=== PATIENT | male | born 2000 | race African-American/Black ===

== ENCOUNTER 2018-05-05 20:47 | Emergency (ER) | payer MEDICAID ==
[~2018-05-05] VITALS: Ht 172.7 cm; Wt 68.0 kg
[~2018-05-05 20:47] MED LIST: IBUPROFEN600 MG ORAL; NKM
[2018-05-05 21:06] VITALS: BP 147/94
[2018-05-05] MEDS ORDERED: PREDNISONE20 MG ORAL (21:28)
[2018-05-05] MEDS ORDERED: AMOXICILLIN500 MG ORAL (21:28)
--- NOTE | 2018-05-05 21:29 | Emergency Room Report ---
History of Present Illness General Chief Complaint: Asthma Source: Patient Present Illness HPI Is a 18-year-old male with no past medical history except asthma. He presents with some facial pain and swelling. He said around 11 AM this morning he has an asthma attack. He uses inhaler and later on today he felt some tingling and swelling to his upper lip and left facial pain with her pain. Denies any nausea vomiting. Denies any fever chills. Nothing made it better. Nothing made it worse. Not itching. No rash or complaint. Allergies: Coded Allergies: No Known Allergies (Unverified , 07/27/13) Patient History Past Medical History: see triage record, old chart reviewed, asthma Past Surgical History: none Pertinent Family History: none Social History: Denies: smoking Immunizations: other Reviewed Nursing Documentation: PMH: Agreed; PSxH: Agreed Nursing Documentation-PMH Hx Asthma: Yes Review of Systems Eye: Denies: eye pain, blurred vision ENT: Denies: ear pain, nose congestion, throat swelling Respiratory: Denies: cough, shortness of breath Cardiovascular: Denies: chest pain, palpitations Gastrointestinal: Denies: abdominal pain, diarrhea, nausea, vomiting Musculoskeletal: Denies: back pain, joint pain Skin: Denies: rash Neurological: Denies: headache, numbness Endocrine: Denies: increased thirst, increased urine Hematologic/Lymphatic: Denies: easy bruising All Other Systems: negative except mentioned in HPI Physical Exam Vital Signs Date Time Temp Pulse Resp B/P (MAP) Pulse Ox O2 Delivery O2 Flow Rate FiO2 05/05/18 20:50 97.3 73 18 130/86 97 Room Air 97.3 Sp02 EP Interpretation: reviewed, normal General Appearance: well appearing, no apparent distress, alert Head: normocephalic, atraumatic Eyes: bilateral eye PERRL, bilateral eye EOMI ENT: hearing grossly normal, normal pharynx, other - poor dentition. Neck: full range of motion, supple, no meningismus Respiratory: chest non-tender, lungs clear, normal breath sounds Cardiovascular #1: regular rate, rhythm, no murmur Gastrointestinal: normal bowel sounds, non tender, no mass, no organomegaly, no bruit, non-distended Musculoskeletal: back normal, gait/station normal, normal range of motion Psychiatric: mood/affect normal Skin: warm/dry Medical Decision Making Diagnostic Impression: Primary Impression: Lip edema Additional Impressions: Asthma Qualified Codes: J45.909 - Unspecified asthma, uncomplicated Gingivitis due to dental plaque ER Course Patient with asthma exacerbation. He is clear now. His lymphedema is minimal. This may be secondary to dental infection since he has very poor dentition with plaque and gingivitis. We'll discharge home with antibiotics and prednisone. Last Vital Signs Date Time Temp Pulse Resp B/P (MAP) Pulse Ox O2 Delivery O2 Flow Rate FiO2 05/05/18 21:06 97.0 74 13 147/94 100 Room Air 97.0 Status: unchanged Disposition: HOME, SELF-CARE Condition: Stable Scripts Prednisone* (PREDNISONE*) 20 Mg Tablet 40 MG ORAL DAILY, #10 TAB Prov: CINDY PHELPS M.D. 05/05/18 Amoxicillin* (AMOXIL*) 500 Mg Capsule 500 MG ORAL THREE TIMES A DAY, #21 CAP Prov: CINDY PHELPS M.D. 05/05/18 Additional Instructions: Follow-up with your doctor in 7 days. Return if symptom worsen. CINDY PHELPS M.D. May 05, 2018 21:29
[2018-05-05 21:37] VITALS: BP 123/65
== END 2018-05-05 21:37 | disposition home or self-care (01) ==
LOC: EMR 21:31
DX: J45.909 Unspecified asthma, uncomplicated (principal); R60.0 Localized edema; K05.10 Chronic gingivitis, plaque induced
CPT/HCPCS: 99284

== ENCOUNTER 2018-09-15 22:11 | Emergency (ER) | payer MEDICAID ==
[~2018-09-15] VITALS: Ht 170.2 cm; Wt 71.7 kg
[~2018-09-15 22:11] MED LIST changes: +AMOXICILLIN500 MG ORAL; +PREDNISONE20 MG ORAL
[2018-09-15 22:31] VITALS: BP 140/86
[2018-09-15] MEDS ORDERED: IBUPROFEN600 MG ORAL (22:32)
--- NOTE | 2018-09-15 22:33 | Emergency Room Report ---
History of Present Illness General Chief Complaint: Pain Source: Patient Present Illness HPI This is a 18-year-old male with no past medical history. He presents with chief complaint of locked jaw. We'll cut said he can open his mouth very well. He has tenderness of the jaw area. It wasn't dislocated. Never had this problem before. Better now. Denies any other complaint. Allergies: Coded Allergies: No Known Allergies (Unverified , 07/27/13) Patient History Past Medical History: see triage record, old chart reviewed Past Surgical History: none Pertinent Family History: none Social History: Denies: smoking Immunizations: other Reviewed Nursing Documentation: PMH: Agreed; PSxH: Agreed Nursing Documentation-PMH Past Medical History: No Stated History Hx Asthma: Yes Review of Systems Eye: Denies: eye pain, blurred vision ENT: Denies: ear pain, nose congestion, throat swelling Respiratory: Denies: cough, shortness of breath Cardiovascular: Denies: chest pain, palpitations Gastrointestinal: Denies: abdominal pain, diarrhea, nausea, vomiting Musculoskeletal: Denies: back pain, joint pain Skin: Denies: rash Neurological: Denies: headache, numbness Endocrine: Denies: increased thirst, increased urine Hematologic/Lymphatic: Denies: easy bruising All Other Systems: negative except mentioned in HPI Physical Exam Vital Signs Date Time Temp Pulse Resp B/P (MAP) Pulse Ox O2 Delivery O2 Flow Rate FiO2 09/15/18 22:15 98.2 86 16 140/86 100 Room Air vitals normal Sp02 EP Interpretation: reviewed, normal General Appearance: well appearing, no apparent distress, alert Head: normocephalic, atraumatic Eyes: bilateral eye PERRL, bilateral eye EOMI ENT: hearing grossly normal, normal pharynx, other - This clicking of his TMJs bilaterally Neck: full range of motion, supple, no meningismus Respiratory: chest non-tender, lungs clear, normal breath sounds Cardiovascular #1: regular rate, rhythm, no murmur Gastrointestinal: normal bowel sounds, non tender, no mass, no organomegaly, no bruit, non-distended Musculoskeletal: back normal, gait/station normal, normal range of motion Psychiatric: mood/affect normal Skin: warm/dry Medical Decision Making Diagnostic Impression: Primary Impression: TMJ (temporomandibular joint syndrome) ER Course Patient with TMJ syndrome. Better now. We'll discharge home. Notice any dislocation. Last Vital Signs Date Time Temp Pulse Resp B/P (MAP) Pulse Ox O2 Delivery O2 Flow Rate FiO2 09/15/18 22:15 98.2 86 16 140/86 100 Room Air Status: improved Disposition: HOME, SELF-CARE Condition: Stable Scripts Ibuprofen* (MOTRIN*) 600 Mg Tablet 600 MG ORAL THREE TIMES A DAY, #30 TAB 0 Refills Prov: Joaquim Canas MD 09/15/18 Additional Instructions: Soft food for now. No chewing gum. If continue to be problematic, may need mouthguard at night. Follow-up with your doctor in 7 days. Return if worse. Joaquim Canas MD Sep 15, 2018 22:33
[2018-09-15 22:41] VITALS: BP 136/86
== END 2018-09-15 22:40 | disposition home or self-care (01) ==
LOC: EMR 22:31
DX: M26.603 Bilateral temporomandibular joint disorder, unspecified (principal); J45.909 Unspecified asthma, uncomplicated
CPT/HCPCS: 99282

== ENCOUNTER 2019-08-11 16:13 | Emergency (ER) | payer MEDICAID, OTHER ==
[~2019-08-11] VITALS: Ht 172.7 cm; Wt 72.6 kg
[2019-08-11 16:23] VITALS: BP 133/92
[2019-08-11] MEDS ORDERED: ALBUTEROL SULF8.5 GM INH (16:30)
[2019-08-11] MEDS ORDERED: PREDNISONE20 MG ORAL (16:30)
--- NOTE | 2019-08-11 16:33 | NUR ---
ED Nurse Note: PT FROM HOME WALKED IN DUE TO ASTHMA ATTACK AROUND 0800AM THIS MORNING. PT TOOK ALBUTEROL BUT STATES IT JUST HELPED HIM A LITTLE BIT. NO AUDIBLE WHEEZING AT THIS TIME. AAO X4, AMBULATORY WITH NON LABORED BREATHING.
[2019-08-11 16:39] VITALS: BP 133/92
--- NOTE | 2019-08-11 16:39 | NUR ---
ER DISCHARGE NOTE: Patient is cleared to be discharged per ERMD, pt is aox4, on room air, with stable vital signs. pt was given dc and prescription instructions, pt was able to verbalize understanding, pt id band removed without complications. pt is able to ambulate with steady gait. pt took all belongings.
--- NOTE | 2019-08-11 17:05 | Emergency Room Report ---
History of Present Illness General Chief Complaint: Asthma Source: Patient Present Illness HPI 19-year-old male presents ED for evaluation. States this morning he felt short of breath. History of asthma. States that warm weather triggers his asthma. States he uses inhaler and feels better. Is here for refill of his inhaler. Denies any cough or shortness of breath at this time. Denies any chest pain. No other aggravating relieving factors. Denies any other associated symptoms Allergies: Coded Allergies: No Known Allergies (Unverified , 07/27/13) Patient History Past Medical History: asthma Past Surgical History: none Pertinent Family History: none Social History: Denies: smoking, alcohol use, drug use Immunizations: UTD Reviewed Nursing Documentation: PMH: Agreed; PSxH: Agreed Nursing Documentation-PMH Past Medical History: No History, Except For Hx Asthma: Yes Review of Systems All Other Systems: negative except mentioned in HPI Physical Exam Vital Signs Date Time Temp Pulse Resp B/P (MAP) Pulse Ox O2 Delivery O2 Flow Rate FiO2 08/11/19 16:23 98.1 73 18 133/92 100 Room Air Sp02 EP Interpretation: reviewed, normal General Appearance: no apparent distress, alert, GCS 15, non-toxic Head: normocephalic, atraumatic Eyes: bilateral eye normal inspection, bilateral eye PERRL ENT: hearing grossly normal, normal pharynx, no angioedema, normal voice Neck: full range of motion, supple/symm/no masses Respiratory: chest non-tender, lungs clear, normal breath sounds, speaking full sentences Cardiovascular #1: regular rate, rhythm, no edema Cardiovascular #2: 2+ carotid (R), 2+ carotid (L), 2+ radial (R), 2+ radial (L) , 2+ dorsalis pedis (R), 2+ dorsalis pedis (L) Gastrointestinal: normal bowel sounds, non tender, soft, non-distended, no guarding, no rebound Rectal: deferred Genitourinary: normal inspection, no CVA tenderness Musculoskeletal: back normal, gait/station normal, normal range of motion, non- tender Neurologic: alert, oriented x3, responsive, motor strength/tone normal, sensory intact, speech normal Psychiatric: judgement/insight normal, memory normal, mood/affect normal, no suicidal/homicidal ideation Reflexes: 3+ bicep (R), 3+ bicep (L), 3+ tricep (R), 3+ tricep (L), 3+ knee (R) , 3+ knee (L) Lymphatic: no adenopathy Medical Decision Making Diagnostic Impression: Primary Impression: Asthma attack Qualified Codes: J45.21 - Mild intermittent asthma with (acute) exacerbation ER Course Hospital Course 19 yo M presents with SOB. h/o asthma Differential diagnoses include: URI, bronchitis, asthma/COPD, pneumonia Clinical course Patient placed on stretcher. After initial history, physical exam reveals a male in no acute distress. Bilateral TM unremarkable. No pharyngeal erythema. No tonsillar exudates. No lymphadenopathy. no wheezing noted on exam, no signs of respiratory distress or retractions. Vitals stable. Discussed findings with patient. Offered option for breathing treatment but patient declined. Is just requesting refill of his albuterol. I will also prescribe prednisone. Does not have a PMD. I will provide referrals Diagnosis - asthma exacerbation Stable and discharged home with prescriptions for albuterol, prednisone. Instructed to followup with PMD. Return to ED if symptoms recur or worsen Last Vital Signs Date Time Temp Pulse Resp B/P (MAP) Pulse Ox O2 Delivery O2 Flow Rate FiO2 08/11/19 16:39 98.1 73 16 133/92 100 Room Air Status: improved Disposition: HOME, SELF-CARE Condition: Stable Scripts Prednisone* (PREDNISONE*) 20 Mg Tablet 40 MG ORAL DAILY, #10 TAB Prov: Corby Burnett MD 08/11/19 Albuterol Sulfate* (ALBUTEROL SULFATE MDI*) 8.5 Gm Hfa.aer.ad 2 PUFF INH Q6H, #1 EA 0 Refills Prov: Corby Burnett MD 08/11/19 Referrals: [facility] Patient Instructions: Asthma, Adult Corby Burnett MD Aug 11, 2019 17:05
== END 2019-08-11 17:00 | disposition home or self-care (01) ==
LOC: EMR 16:58
DX: J45.21 Mild intermittent asthma with (acute) exacerbation (principal); Z79.51 Long term (current) use of inhaled steroids
CPT/HCPCS: 99282

== ENCOUNTER 2020-11-05 02:13 | Emergency (ER) | payer MEDICAID, OTHER ==
[~2020-11-05] VITALS: Ht 172.7 cm; Wt 74.8 kg
[~2020-11-05 02:13] MED LIST changes: +ALBUTEROL SULF8.5 GM INH
--- NOTE | 2020-11-05 02:29 | NUR ---
ED Nurse Note: Pt walked into the ed due to sore throat and gum swelling since last night. pt denied sob, cough, and pain at the moment. pt vitals are stable.
[2020-11-05 02:32] VITALS: BP 148/86
--- NOTE | 2020-11-05 02:48 | Emergency Room Report ---
History of Present Illness General Chief Complaint: Sore Throat Source: Patient, Medical Record Present Illness HPI The patient presents with swelling of his gums. This began yesterday. He has had this problem in the past. He has had gum infections in the past. In addition he has a sore throat. He is having difficulty swallowing but is able to keep down liquids and also solid food. He reports the pain in his gum and throat as 6/10. Somewhat sharp and burning. It is not radiating. Patient denies any difficulty breathing. There is no fever or chills although he felt warm tonight. Patient has no cough. History of asthma. Although the patient is recently travel to [place] he is adamant that he has not been in contact with any Covid positive sources. No chest pain, palpitations, nausea, vomiting, diarrhea, dysuria, abdominal pain, shortness of breath, joint pain, rashes, dizziness, headache. Allergies: Coded Allergies: No Known Allergies (Unverified , 07/27/13) COVID-19 Screening Contact w/high risk pt: No Experienced COVID-19 symptoms?: Yes COVID-19 Testing performed MANAGER PLUMBING: No Patient History Past Medical History: see triage record Social History: Denies: smoking, alcohol use Social History Narrative Unemployed, with girlfriend Reviewed Nursing Documentation: PMH: Agreed; PSxH: Agreed Nursing Documentation-PMH Past Medical History: No History, Except For Hx Asthma: Yes Review of Systems All Other Systems: negative except mentioned in HPI Physical Exam Vital Signs Date Time Temp Pulse Resp B/P (MAP) Pulse Ox O2 Delivery O2 Flow Rate FiO2 11/05/20 02:17 98.1 105 20 148/86 (106) 99 Room Air Sp02 EP Interpretation: reviewed, normal General Appearance: well appearing, no apparent distress, GCS 15 Head: normocephalic Eyes: bilateral eye normal inspection, bilateral eye PERRL, bilateral eye EOMI ENT: moist mucus membranes, other - Gum swollen bilaterally mainly upper without erythema. Pharynx has erythema diffusely without angioedema. Neck: full range of motion, supple, other - No stridor Respiratory: chest non-tender, lungs clear, normal breath sounds Cardiovascular #1: regular rate, rhythm Cardiovascular #2: 2+ radial (R) Gastrointestinal: normal inspection, scaphoid Musculoskeletal: gait/station normal Neurologic: alert, grossly normal Psychiatric: mood/affect normal Skin: no rash Medical Decision Making Diagnostic Impression: Primary Impression: Gingivitis Additional Impression: Pharyngitis Qualified Codes: J02.9 - Acute pharyngitis, unspecified ER Course Patient presents with swollen and painful gums and painful throat of 2 days dur ation. Differential includes gingivitis, pharyngitis, dental abscesses amongst others. Patient does not appear toxic nor dehydrated. Patient has been isolating himself with his girlfriend and does not believe he has COVID-19 at this time. Based on exam and oxygen saturation clinically significant COVID-19 is less likely. Most likely the patient has pharyngitis and gingivitis. Indication for antibiotic treatment. In addition dexamethasone given orally. Patient is also treated with Tylenol. Discussed findings and treatment plan with patient. Patient improved and stable for outpatient observation and treatment. Last Vital Signs Date Time Temp Pulse Resp B/P (MAP) Pulse Ox O2 Delivery O2 Flow Rate FiO2 11/05/20 03:42 97.9 79 18 138/79 99 Room Air Status: improved Disposition: HOME, SELF-CARE Condition: Improved Scripts Acetaminophen (Tylenol) 325 Mg Tablet 650 MG ORAL Q6H PRN for Prn Pain/Headache/Temp > 101, #20 TAB 0 Refills Prov: Link Hand MD 11/05/20 Amoxicillin* (AMOXIL*) 500 Mg Capsule 500 MG ORAL THREE TIMES A DAY, #21 CAP Prov: Link Hand MD 11/05/20 Link Hand MD Nov 05, 2020 02:48
[2020-11-05] MEDS ORDERED: Acetaminophen 500mg (ES) tab ORAL ONE (03:00)
[2020-11-05] MEDS ORDERED: TYLENOL325 MG ORAL (03:17)
[2020-11-05] MEDS ORDERED: AMOXICILLIN500 MG ORAL (03:17)
[2020-11-05 03:42] VITALS: BP 138/79
== END 2020-11-05 03:43 | disposition home or self-care (01) ==
LOC: EMR 02:49
DX: K05.10 Chronic gingivitis, plaque induced (principal); J02.9 Acute pharyngitis, unspecified
CPT/HCPCS: J8540; Z7502; 99282